=== PATIENT | female | born 1995 | race Hispanic/Latino ===

== ENCOUNTER 2017-05-07 19:48 | Emergency (ER) | payer OTHER ==
[2017-05-07 20:12] VITALS: BP 150/85; PULSE 94; TEMP 98.5; O2SAT 99
[2017-05-07] MEDS ORDERED: Bacitracin 500 Units/gm Oint Foilpak UD ONE (20:44)
--- NOTE | 2017-05-07 21:25 | C.PDOC ---
History Of Present Illness 21 year old female presents to the ED for evaluation of a laceration which she sustained to her left index finger white cutting salad at home. Patient states she is up-to-date with Tetanus immunization and denies extremity numbness/ weakness at this time. Time Seen by Provider: 05/07/17 20:22 Chief Complaint (Nursing): Abnormal Skin Integrity History Per: Patient History/Exam Limitations: no limitations Current Symptoms Are (Timing): Still Present Location Of Injury: Left: Hand (index finger ) Additional History Per: Patient Past Medical History Reviewed: Historical Data, Nursing Documentation, Vital Signs Vital Signs: Last Vital Signs Temp 98.5 F 05/07/17 20:08 Pulse 94 H 05/07/17 20:08 Resp 20 05/07/17 21:50 BP 150/85 05/07/17 20:08 Pulse Ox 99 05/08/17 02:35 - Medical History PMH: No Chronic Diseases Surgical History: No Surg Hx Family History: States: Unknown Family Hx - Social History Hx Alcohol Use: Yes Hx Substance Use: Yes - Immunization History Hx Tetanus Toxoid Vaccination: Yes (3-4 yrs ago [id number]) Hx Influenza Vaccination: No Hx Pneumococcal Vaccination: No Review Of Systems Skin: Positive for: Other (laceration to left index finger ) Neurological: Negative for: Weakness, Numbness Physical Exam - Physical Exam Appears: Non-toxic, No Acute Distress Skin: Warm, Dry Eye(s): bilateral: Normal Inspection Extremity: Normal ROM, Capillary Refill (less than 2 seconds ), Other (partial skin avulsion involving distal aspect of nail to left 2nd fingertip medially with minimal active bleeding ) Neurological/Psych: Oriented x3, Normal Speech, Normal Cognition, Normal Sensation Gait: Steady ED Course And Treatment O2 Sat by Pulse Oximetry: 99 (on RA) Pulse Ox Interpretation: Normal Progress Note: Wound was cleaned with betadine and saline. Bacitracin and pressure dressing applied to area. Patient is resting comfortably, showing no signs of distress and is stable for discharge. Patient is given wound care instructions and is advised to return to the ED if symptoms return or worsen. Disposition Counseled Patient/Family Regarding: Diagnosis, Need For Followup, Rx Given - Disposition Referrals: [facility] [Outside] Disposition: HOME/ ROUTINE Disposition Time: 21:22 Condition: STABLE Additional Instructions: Please follow up with PMD Keep wound clean and dry May apply bacitracin or neosporin oint Return to ER if worse Instructions: Nail Avulsion (ED) Forms: [facility] (Stateless) - Clinical Impression Clinical Impression: Fingernail avulsion, partial - PA / [employer] / Resident Statement MD/DO has reviewed & agrees with the documentation as recorded. - Scribe Statement The provider has reviewed the documentation as recorded by the Scribe (Kortney Hill) All medical record entries made by the Scribe were at my direction and personally dictated by me. I have reviewed the chart and agree that the record accurately reflects my personal performance of the history, physical exam, medical decision making, and the department course for this patient. I have also personally directed, reviewed, and agree with the discharge instructions and disposition.
[2017-05-07 21:51] VITALS: RESP 20
== END 2017-05-07 21:50 | disposition home or self-care (01) ==
LOC: C.ER 19:48 → SUPCPDRO 19:48 → C.ER 21:50
DX: S61.311A Laceration without foreign body of left index finger with damage to nail, initial encounter (principal); W45.8XXA Other foreign body or object entering through skin, initial encounter; Y93.G1 Activity, food preparation and clean up; Y92.009 Unspecified place in unspecified non-institutional (private) residence as the place of occurrence of the external cause